=== PATIENT | male | born 1990 | race Caucasian/White ===

== ENCOUNTER 2024-05-11 10:47 | Emergency (ER) | payer SELFPAY ==
[2024-05-11 10:53] VITALS: BP 129/77; PULSE 66; RESP 16; TEMP 36.6; O2SAT 100
[2024-05-11] MEDS: TETANUS,DIPHTHERIA,AC PERTUSSIS ADULT (0.5 ML) BOOSTRIX IM (11:36)
--- NOTE | 2024-05-11 12:40 | ED.GENADULT ---
HPI - General Adult General Chief complaint: Wound/Laceration Stated complaint: Injured Finger Source: patient Mode of arrival: ambulatory Limitations: no limitations History of Present Illness HPI narrative: Patient presents for evaluation of a laceration to the left ring finger that occurred just [employer]. He accidentally cut himself when attempting to cut open a frozen pack of meat at home. He denies pain in the affected area. No loss of range of motion. No paresthesias. He is right-hand dominant. Denies fever, chills, purulent drainage. He is not diabetic. Date of last tetanus unknown. Related Data Home Medications Medication Instructions Recorded Confirmed No Home Medications 05/11/24 05/11/24 Allergies Allergy/AdvReac Type Severity Reaction Status Date / Time No Known Allergies Allergy Verified 05/11/24 11:04 Review of Systems Review of Systems: CONSTITUTIONAL: Denies fever, chills, or sweats. EYES: Denies visual changes, redness, or discharge. ENT: Denies rhinorrhea, congestion, sore throat, or otalgia. CARDIOVASCULAR: Denies chest pain, palpitations, or edema. RESPIRATORY: Denies cough or dyspnea. GASTROINTESTINAL: Denies abdominal pain, nausea, vomiting, or diarrhea. GENITOURINARY: Denies dysuria or hematuria. SKIN: Reports laceration to left ring finger MUSCULOSKELETAL: Denies back pain, joint pain, or myalgia. NEUROLOGIC: Denies headache, numbness, dizziness, or weakness. PSYCHIATRIC: Denies anxiety or depression. PMFSH Past Medical History Medical History No pertinent past medical history Surgical History Surgical History No pertinent past surgical history Family History Family History Mother Family history non-contributory Social History Social History Smoking status: Never smoker Substance use: never Gender identity (if verbalized by the patient): Male Exam Narrative: GENERAL: Well-appearing, well-nourished, and in no acute distress. HEAD: Normocephalic, atraumatic. EYES: PERRLA and EOMI. ENT: Nares clear, no rhinorrhea or epistaxis. Mucous membranes moist. Oropharynx without tonsillar hypertrophy exudate or other lesions. Bilateral TMs pearly galloway nonbulging NECK: Supple. No adenopathy or masses. No carotid bruits or JVD CHEST: Clear to auscultation. No respiratory distress. No wheezes rales or rhonchi HEART: Regular rate and rhythm. No murmur heard. Normal peripheral pulses. ABDOMEN: Soft, nontender, nondistended, normal active bowel sounds. EXTREMITIES: Normal range of motion. No edema. SKIN: there is a 2.1 cm laceration in flap formation to the dorsal aspect of the proximal phalanx of the 4th digit of the left hand in a transverse formation. Bleeding is controlled. NEURO: No focal deficits. Alert and oriented x3. PSYCH: Normal mood and affect. Course Course Emergency Course: This is a 34-year-old male who presented for evaluation of a laceration to the left ring finger. No loss of range of motion or suspicion for retained foreign body so imaging not performed. He was updated on tetanus. Four sutures were placed and pt tolerated well. Advised on wound care. Follow up with primary provider. Go to the ER for worsening symptoms. Pt in agreement with plan of care. Level of Care: Express Care Visit Vital Signs Vital signs: Vital Signs Temperature 36.6 C 05/11/24 10:53 Pulse Rate 66 05/11/24 10:53 Respiratory Rate 16 05/11/24 10:53 Blood Pressure 129/77 05/11/24 10:53 Pulse Oximetry 100 05/11/24 10:53 Temperature 36.6 C 05/11/24 10:53 Pulse Rate 66 05/11/24 10:53 Respiratory Rate 16 05/11/24 10:53 Blood Pressure 129/77 05/11/24 10:53 Pulse Oximetry 100 05/11/24 10:53 Procedures Laceration Laceration 1: Date: 05/11/24 Time: 11:30 Site: hand Side (If applicable): left Size (cm): 2.1 Description: flap Depth: simple, single layer Local Anesthetic: lidocaine 1% Amount of anesthesia used (mL): 4 Pre-repair: wound explored and irrigated extensively ====== Skin Level ====== Skin layer closed with: nylon Size (cm): 5-0 Number of sutures: 4 Technique: simple, interrupted ====== Subcutaneous Layer ====== ====== Muscle Layer ====== ====== Tendon Layer ====== Medical Decision Making Vital Signs Vital Signs: Vital Signs Temperature 36.6 C 05/11/24 10:53 Pulse Rate 66 05/11/24 10:53 Respiratory Rate 16 05/11/24 10:53 Blood Pressure 129/77 05/11/24 10:53 Pulse Oximetry 100 05/11/24 10:53 Temperature 36.6 C 05/11/24 10:53 Pulse Rate 66 05/11/24 10:53 Respiratory Rate 16 05/11/24 10:53 Blood Pressure 129/77 05/11/24 10:53 Pulse Oximetry 100 05/11/24 10:53 Discharge Plan Discharge Clinical Impression: Laceration of left ring finger Patient Disposition: Home, Self-Care Condition: Stable Instructions: Antibiotic Form, Finger Laceration (ED) Patient Language: Latvian Prescriptions: No Action No Home Medications Follow-up/Referrals: Juan Samuel MD [Physician] - Time of Disposition: 11:41
== END 2024-05-11 11:43 | disposition home or self-care (01) ==
PROVIDERS: Emergency Provider Nurse Practitioner
DX: S61.215A Laceration without foreign body of left ring finger without damage to nail, initial encounter (principal); W45.8XXA Other foreign body or object entering through skin, initial encounter; Z23 Encounter for immunization
CPT/HCPCS: 12001; 90471; 90715; 99203; G0463; J2003